=== PATIENT | female | born 1985 | race Caucasian/White ===

== ENCOUNTER → 2020-08-02 16:27 | Outpatient (CLI) | payer OTHER, SELFPAY ==
[2020-08-02 14:39] VITALS: BMI 28.3
[2020-08-05 04:12] LABS: Chlamydia By Nucleic Acid AMP Negative (Negative)
[2020-08-05 15:31] LABS: Gonococcus By Nucleic Acid AMP Negative (Negative)
[2020-08-06 12:40] LABS: HPV APTIMA, High Risk Negative (Negative)
== END ==
PROVIDERS: PCP Internal Medicine; Referring Provider Nurse Practitioner Women's Health; Visit Provider Nurse Practitioner Women's Health
DX: Z12.4 Encounter for screening for malignant neoplasm of cervix (principal); Z11.3 Encounter for screening for infections with a predominantly sexual mode of transmission
CPT/HCPCS: 87491; 87591; 87624; 88175; G0145

== ENCOUNTER → 2020-08-09 11:48 | Outpatient (CLI) | payer BC, SELFPAY ==
[2020-08-02 14:39] VITALS: BMI 28.3
[2020-08-09 12:43] LABS: Thyroid Stim Hormone (TSH) 1.57 uIU/mL (0.358-3.74)
== END ==
PROVIDERS: PCP Internal Medicine; Visit Provider Nurse Practitioner Women's Health
DX: N97.0 Female infertility associated with anovulation (principal); R10.2 Pelvic and perineal pain; Z13.29 Encounter for screening for other suspected endocrine disorder
CPT/HCPCS: 36415; 82627; 84402; 84443; 82626

== ENCOUNTER → 2020-08-18 12:29 | Outpatient (CLI) | payer BC, SELFPAY ==
[2020-08-02 14:39] VITALS: BMI 28.3
--- NOTE | 2020-08-18 12:30 | US_ITS ---
STUDY: ULTRASOUND OF THE FEMALE PELVIS - COMPLETE REASON FOR EXAM: Female, 35 years old. Pain rlq LMP: 08/08/2020 TECHNIQUE: Transabdominal and Transvaginal TECHNICAL QUALITY: Adequate. COMPARISON: None. FINDINGS: The uterus is anteverted and is in a midline position. The uterus measures 6.7 cm x 5.2 cm x 3.5 cm. Normal uterine cervix. The endometrium measures 5 mm in thickness, and is hyperechoic. There is no demonstrated endometrial mass. A small amount of fluid is seen in the cervical canal. There is no demonstrated myometrial mass. I.U.D. - The patient does not have an I.U.D. The right ovary is visualized. The right ovary measures 2.4 cm x 1.7 cm x 1.1 cm. There is no right ovarian cyst or ovarian mass. There is no visualized right adnexal mass or complex lesion. There is normal arterial and normal venous vascularity. The left ovary is visualized. The left ovary measures 4.7 cm x 2.4 cm x 2.7 cm. A dominant follicle is seen within the ovary. There is no visualized left adnexal mass or complex lesion. There is normal arterial and normal venous vascularity. There is no fluid in the cul-de-sac. The pre void volume of the bladder was 282 ml. US/Transvaginal Non- IMPRESSION: Small amount of fluid in the endocervical canal. Dominant follicle in the left ovary. Electronically Signed: Lenin Leblanc MD at 15:27 EDT , Service support ,
--- NOTE | 2020-08-18 12:30 | US_ITS ---
STUDY: ULTRASOUND OF THE FEMALE PELVIS - COMPLETE REASON FOR EXAM: Female, 35 years old. Pain rlq LMP: 08/08/2020 TECHNIQUE: Transabdominal and Transvaginal TECHNICAL QUALITY: Adequate. COMPARISON: None. FINDINGS: The uterus is anteverted and is in a midline position. The uterus measures 6.7 cm x 5.2 cm x 3.5 cm. Normal uterine cervix. The endometrium measures 5 mm in thickness, and is hyperechoic. There is no demonstrated endometrial mass. A small amount of fluid is seen in the cervical canal. There is no demonstrated myometrial mass. I.U.D. - The patient does not have an I.U.D. The right ovary is visualized. The right ovary measures 2.4 cm x 1.7 cm x 1.1 cm. There is no right ovarian cyst or ovarian mass. There is no visualized right adnexal mass or complex lesion. There is normal arterial and normal venous vascularity. The left ovary is visualized. The left ovary measures 4.7 cm x 2.4 cm x 2.7 cm. A dominant follicle is seen within the ovary. There is no visualized left adnexal mass or complex lesion. There is normal arterial and normal venous vascularity. There is no fluid in the cul-de-sac. The pre void volume of the bladder was 282 ml. US/Pelvic (Non ) IMPRESSION: Small amount of fluid in the endocervical canal. Dominant follicle in the left ovary. Electronically Signed: Lenin Leblanc MD at 15:27 EDT , Service support ,
== END ==
PROVIDERS: PCP Internal Medicine; Referring Provider Nurse Practitioner Women's Health; Visit Provider Nurse Practitioner Women's Health
DX: R10.2 Pelvic and perineal pain (principal)
CPT/HCPCS: 76830; 76856; 93976

== ENCOUNTER → 2020-08-20 12:28 | Outpatient (CLI) | payer BC, SELFPAY ==
[2020-08-02 14:39] VITALS: BMI 28.3
[2020-08-20 13:53] LABS: NATERA MAILED SPECIMEN
== END ==
PROVIDERS: PCP Internal Medicine; Referring Provider Obstetrics & Gynecology; Visit Provider Obstetrics & Gynecology
DX: N97.0 Female infertility associated with anovulation (principal); Z80.41 Family history of malignant neoplasm of ovary
CPT/HCPCS: 36415

== ENCOUNTER → 2021-02-28 09:36 | Outpatient (CLI) | payer BC, SELFPAY ==
[2021-02-28 09:53] LABS: Absolute Lymphocyte Count 2.61 X10^3/uL (0.83-4.51); Basophil# 0.04 X10^3/uL; Basophil% 0.5 % (0-1); Eosinophil# 0.06 X10^3/uL; Eosinophils% 0.8 % (0-5); Hematocrit 40.8 % (37-47); Lymphocyte # 2.61 X10^3/ul (0.83-4.51); Lymphocyte % 35.8 % (19-41); Mean Corp Hgb Conc 31.9 g/dL (32-36); Mean Corpuscular Hgb 28.5 pg (27.0-32.0); Mean Corpuscular Volume 89.5 fL (81-99); Mean Platelet Vol. 10.1 fl (6.2-12.0); Monocyte# 0.56 X10^3/uL; Monocyte% 7.7 % (0-10); NRBC Flagged by Analyzer 0 % (0-5); Neutrophil # 3.98 X10^3/uL (2.7-7.7); Neutrophil % 54.7 % (47-70); Platelet Count 334 K/mm3 (150-450); RBC Distribution Width CV 15.1 % (11.6-14.6); Red Blood Count 4.56 M/mm3 (4.2-5.4); White Blood Count 7.3 K/mm3 (4.4-11.0)
== END ==
PROVIDERS: PCP Internal Medicine; Referring Provider Obstetrics & Gynecology; Visit Provider Obstetrics & Gynecology
DX: Z01.818 Encounter for other preprocedural examination (principal)
CPT/HCPCS: 36415; 85025; 86850; 86900; 86901

== ENCOUNTER 2021-03-01 12:28 | Day surgery (SDC) | payer BC, SELFPAY ==
[2021-03-01] VITALS (8 sets, daily range): BP systolic 93–118; BP diastolic 6–69; PULSE 60–86; RESP 16; TEMP 36.1–37.2; O2SAT 97–100; BMI 25.7
--- NOTE | 2021-03-01 07:53 | HP.PCM_ITS ---
History and Physical Date of Admission: 03/01/21 Intake Visit Reasons: discuss exp lap to r/o endometriosis per Chief Complaint: endometriosis Dance Choreographer Required: No Is patient in pain?: Yes Allergies No Known Allergies Allergy (Unverified 08/02/20 14:36) Medications prenat.vits,veronica,[id number] 1 tab PO DAILY 08/02/20 [History Confirmed 10/15/20] Post menopausal: No Patient : No : No PFSH Medical History Family history of ovarian cancer Infertility Pelvic pain Family History Unknown Heart disease Diabetes Grandmother Ovarian cancer Social History household members: spouse current occupational status: employed current occupation: self employed history of recent travel: Yes sexually active: Yes Smoking Status: Never smoker alcohol intake: never substance use type: does not use what type of physical activity do you participate in: walking and aerobics frequency: daily seatbelt use: always do you feel safe at home: Yes additional social history: - Janak HPI discuss exp lap to r/o endometriosis per Details: BRIGITTE DARBY is a 35 year old who presents for consult for dysmenorrhea and infertility. she has had no conception in 5 years. she has a lifetime history of painful menses and pelvic pain. Female Reproductive History Cycle Length: 21-35 (30) Bleeding Duration: 7 Questions: metorrhagia: No, sexually active: Yes, dyspareunia: No and PCB: No Menopausal Symptoms: Yes hot flashes (occasional), No night sweats, No weight change, No mood changes, No difficulty concentrating, No sleep problems and No change in libido Pregancy History 0 Elective abortions Hx Para Spontaneous abortions Hx # Term Pregnancies Ectopic pregnancies Hx # Pregnancies Multiple births # of living children ROS Const Constitutional: Denies fatigue, night sweats, weight gain or weight loss ENT ENT: Reports system reviewed and no additional complaints, except as documented Cardio Card: Denies chest pain Resp Resp: Denies cough or dyspnea GI GI: Reports as per HPI; Denies abdominal pain, constipation, nausea or vomiting : Denies nipple discharge, urinary frequency, urinary incontinence, urinary hesitancy, urinary urgency, vaginal discharge, vaginal dryness, vaginal odor or vaginal pruritus Musc Musc: Denies arthralgias, back pain or muscle weakness Skin Skin/Breast: Reports change in hair; Denies alopecia, dry skin, breast mass, breast pain, breast skin changes or nipple discharge Neuro Neuro: Reports system reviewed and no additional complaints, except as documented Psych Psych: Reports system reviewed and no additional complaints, except as documented; Denies change in libido or difficulty concentrating Endo Endo: Denies cold intolerance, excessive sweating, heat intolerance or polydipsia Rodriguez/Lymph Hematologic/Lymphatic: Denies easy bleeding, Denies easy bruising and Denies lymphadenopathy Exam Const General: cooperative, healthy appearing, comfortable, no acute distress and well developed Orientation: alert [facility] Head: normal to inspection and normocephalic Ears: hearing grossly normal bilaterally and external ears normal Nose: external nose normal and nares normal Face and sinus: normal facial exam Neck Neck: normal visual inspection and no lymphadenopathy Thyroid: thyroid normal Chest Chest palpation & inspection: normal inspection of the chest Resp Effort & Inspection: normal respiratory effort Auscultation: clear to auscultation bilaterally Cardio Rate: regular rate Rhythm: regular rhythm Heart Sounds: S1 normal and S2 normal GI Inspection: normal to inspection and non-distended Palpation: soft and no hepatosplenomegaly Musc Other: gross motor intact no deficits, full bilateral strength Skin General: no rashes or lesions noted Neuro General: patient alert, patient awake, moves all extremities and no focal motor deficits Motor: muscle tone normal throughout Extrem General: normal to inspection and no pedal edema Psych Appearance: grossly normal Mental Status: mental status grossly normal Affect: normal affect Speech and Movement: speech and movement normal Coding Level of Care Code Off vis,est,level 4 Diagnoses Family history of ovarian cancer Z80.41 Infertility Dysmenorrhea N94.6 Assessment and Plan Assessment and Plan (1) Family history of ovarian cancer: Status: Acute Comment: empower negative (2) Infertility: Status: Acute Comment: plan chromotubation, semena analysis, diagnostic laparosocpy. (3) Dysmenorrhea: Status: Acute Comment: due to infertility history and pain recommend diagnostic laparosocpy and chromotubation Plan - Dr. Waleska Oneil MD: Problem list updated and treatment plans were reviewed with the patient and relevant educational handouts given. See problem list details for specific plan information. After discussing the patient's diagnosis and treatment plan options, patient wishes to proceed with surgical management. I have discussed with the patient the risks, benefits, and alternatives of the procedure which include but are not limited to risks of anesthesia, bleeding, infection, possible damage to bowel, bladder, or surrounding vasculature which could lead to additional surgery to evaluate any complications. Patient agrees to procedure and wishes to proceed. ACOG/uptodate references given for additional information regarding procedure. UPDATE- I have seen the patient and performed any clinically relevant updates t o the history and physical exam. Waleska Oneil MD
[2021-03-01 13:13] LABS: Internal QC Validated? YES +Cl - CLEAR BKGD
[2021-03-01 13:16] LABS: Pregnancy, Urine Negative Negative
[2021-03-01] MEDS: Lactated Ringers 1,000 ML 15 ML IV (13:45)
[2021-03-01] MEDS: Bupivacaine 0.25% 30 ML Vial (15:09)
--- NOTE | 2021-03-01 15:29 | PCM.OPRPT ---
Report of Operation Pre-Operative Diagnosis: see problem list Post-Operative Diagnosis: same Surgery/Procedure Performed:: Diagnostic laparoscopy ablation endometriosis chromotubation Description of Surgical Findings:: nl uterus tubes ovaries stage I endometriosis with implants on the bladder, bilateral ovarian fossa, cul-de-sac. Bilateral patent fallopian tubes. Stenosis Type of Anesthesia: General and Local Specimen's removed: none Drains: none Estimated Blood Loss (mL): 50 Fluids Replaced: crystalloid Description of Procedure: Patient was taken in the operating room and was placed under general anesthesia was prepped and draped in normal sterile fashion in the dorsal lithotomy position. Bladder was drained of clear urine and SCDs were on preoperatively. Uterus was unable to be dilated passed an 11 mm and therefore an acorn uterine manipulator was placed after dilating. Attention was then paid to the abdominal portion of the procedure and the umbilicus was elevated with towel clamps and injected with Marcaine and after a 5 mm incision was made and the Veress needle was entered into the abdomen confirmed to be intra-abdominal with a low opening pressure of less than 5 mmHg. Abdomen was insufflated with CO2 gas and a 5 mm optical trocar was placed under direct visualization. A 5 mm port in the right and left lower quadrant were placed under direct visualization. Uterus was well visualized and bilateral fallopian tubes identified endometriosis implants seen, see operative findings. All areas of endometriosis were ablated with monopolar energy. No scar tissue or adhesions were noted or encountered. Liver and upper abdomen were visualized notably within normal limits and no other gross abnormalities were seen in the abdomen. Methylene blue was entered into the uterus and bilateral tubal patency was confirmed with normal tubal appearance. all instruments removed from the abdomen and vagina after gas was desufflated. Port sites were closed with 3-0 Monocryl Steri's and op sites were applied. All instruments removed from the vagina and patient was awoken and taken recovery in stable condition. Grafts/Implants Used: none Complications none Admit VTE Documentation VTE Present on Admission: No VTE Mechan Device Prophylaxis: SCD's Multi Select Codes Urinary/Genital Urinary/Genital CPT Codes: 57840 Chromotubation and 97624 Laproscopic ablation endometriosis
--- NOTE | 2021-03-01 15:35 | DCINST_ITS ---
Discharge Instructions Diet Discharge Diet: No restrictions Activity Discharge Activity: Return to Normal Activity, May Not Drive (for 2 weeks or while taking narcotic pain meds.), May Shower and May Take a Tub Bath (in 7 days) May resume sexual activity in: 1 week Weight Bearing Status: Full weight bearing Dressing / Incision Call your doctor if your incision/area has: Continuous Slow Oozing, Sudden Increased Bleeding, Increased Pain/ Swelling, Increased Redness and Foul Smelling Discharge Call your doctor if you observe: Fever of 101 or Higher, Using more than 1 pad per hour, Shortness of breath, Chest pain and Uncontrolled pain Suture Line Care: Avoid Pulling/Pushing and Avoid Pinching/Bending Remove Dressing in: 1 week (if present) Cleanse incision/area with: Soap & Water and Keep Dressing Clean & Dry Follow Up Care When: Call to make an appointment with your doctor for a fu/incision check in 1- 2 weeks. Test Results: Test results from this visit will be discussed in further detail at your follow-up appointment, if applicable. Discharge Plan Admission Primary Reason for Your Visit: laparoscopy Attending Provider: Waleska Oneil Discharge Orders/Prescriptions Prescriptions: New naproxen 250 MG tablet 250 - 500 mg PO Q8H PRN PRN (Reason: MILD PAIN) Qty: 30 RF: 1 oxycodone-acetaminophen [Percocet] 5-325 mg tablet 1 tab PO Q6H PRN (Reason: pain) 7 Days Qty: 20 RF: 0 No Action prenat.vits,veronica,[id number] Tablet 1 tab PO DAILY RF: 0 Referrals / Follow Up: [facility] [Other] Disposition Disposition (needs filled in before D/C Order can be placed): Home, Self Care
== END 2021-03-01 17:54 | disposition home or self-care (01) ==
LOC: SDC 12:33 → AC 12:34
PROVIDERS: Visit Provider Obstetrics & Gynecology
PROC: (CPT 49320; principal; 2021-03-01 13:45)
DX: N80.2 Endometriosis of fallopian tube (principal); N80.0 Endometriosis of uterus; N94.6 Dysmenorrhea, unspecified; N97.9 Female infertility, unspecified; Z80.41 Family history of malignant neoplasm of ovary
CPT/HCPCS: 00840; 58350; 58662; 81025; J7120; Q9968

== ENCOUNTER → 2021-03-07 14:08 | Outpatient (CLI) | payer BC, SELFPAY ==
[2021-03-07 14:30] LABS: Absolute Lymphocyte Count 3.71 X10^3/uL (0.83-4.51); Absolute Neutrophil Count 4.4 X10^3/uL (2.0-7.7); Basophil# 0.05 X10^3/uL; Basophil% 0.5 % (0-1); Eosinophil# 0.27 X10^3/uL; Hematocrit 41.7 % (37-47); Hemoglobin 13.4 g/dL (12.0-15.0); Lymphocyte # 3.71 X10^3/ul (0.83-4.51); Lymphocyte % 40.5 % (19-41); Mean Corp Hgb Conc 32.1 g/dL (32-36); Mean Corpuscular Volume 90.3 fL (81-99); Monocyte# 0.62 X10^3/uL; Monocyte% 6.8 % (0-10); NRBC Flagged by Analyzer 0 % (0-5); Neutrophil # 4.43 X10^3/uL (2.7-7.7); Neutrophil % 48.4 % (47-70); Platelet Count 329 K/mm3 (150-450); RBC Distribution Width CV 14.6 % (11.6-14.6); RBC Distribution Width SD 49.3 fl (35.1-43.9); Red Blood Count 4.62 M/mm3 (4.2-5.4); White Blood Count 9.2 K/mm3 (4.4-11.0)
[2021-03-07 14:46] LABS: ALB/GLOB Ratio 1.1 RATIO (0.9-2.4); AST(SGOT) 22 U/L (15-37); Alanine Aminotransfer ALT/SGPT 37 U/L (13-56); Alkaline Phosphatase 70 U/L (45-117); Anion Gap 5 (5-15); BUN 15 mg/dL (7-18); BUN/Creat Ratio 17.4 RATIO (10-20); Calcium,Total 9.4 mg/dL (8.5-10.1); Chloride 105 mmol/L (98-107); Creatinine, Serum 0.86 mg/dL (0.55-1.02); EST Glomerular Filtration Rate 79 mL/min (>60); Est Glom Filt Rate - Afr Amer 95 mL/min (>60); Globulin 3.8 g/dL (2.2-4.2); Glucose 119 mg/dL (74-106); Potassium 3.5 mmol/L (3.5-5.1); Protein, Total 7.8 g/dL (6.4-8.2); Sodium Level 139 mmol/L (136-145)
== END ==
PROVIDERS: Referring Provider Obstetrics & Gynecology; Visit Provider Obstetrics & Gynecology
DX: R10.2 Pelvic and perineal pain (principal); N39.0 Urinary tract infection, site not specified
CPT/HCPCS: 36415; 80053; 85025; 87086; 87088